=== PATIENT | female | born 1945 | race Caucasian/White ===

== ENCOUNTER → 2016-10-03 | Day surgery (SDC) | payer OTHER ==
[~2016-10-03] MED LIST: HYDROCHLOROTHIA25 MG PO; LEVOTHYROXINE50 MCG PO
--- NOTE | ~2016-10-03 | OR ---
Unit #: [id number] #: [id number] Patient: GIANCARLO ESPARZA [id number] [address] [place], [place] [address] [id number] O MR#: [id number] NAME: GIANCARLO ESPARZA ROOM: Date of Procedure: 10/03/2016 Admission Date: 10/03/2016 Surgeon: Jerod Hassan M.D. : 1945 Attending Physician: Jerod Hassan M.D. Primary Care Physician: Shirley Camp OPERATIVE REPORT PREOPERATIVE DIAGNOSIS Arthrofibrosis, left total knee. POSTOPERATIVE DIAGNOSIS Arthrofibrosis, left total knee. PROCEDURE PERFORMED Manipulation of left total knee. ANESTHESIA General. ESTIMATED BLOOD LOSS Zero. DESCRIPTION OF PROCEDURE The patient was brought to the operating room, given a general anesthetic. The left knee was manipulated with palpable audible release of adhesions. We were able to obtain flexion to about 115. She had about 85 to 90 degrees of flexion preoperatively. After this was done, the knee was found to have an excellent range of motion and general anesthetic was reversed and she was transferred to the recovery room. Dictated by... Schuyler Baker/siddharth TD: 10/04/2016 00:13 JOB #: [id number] OPERATIVE REPORT X Jerod Hassan MD X PROCEDURE OPERATIVE NOTE
[2016-10-03 08:40] LABS: HEMATOCRIT 42.3 % (35.0-45.0); HEMOGLOBIN 14.4 gm/dL (12.0-16.0); MEAN CELL VOLUME 86.6 FL (83-96); MEAN CORPUSCULAR HEMOGLOBIN 29.4 PG (28-34); RED BLOOD COUNT 4.89 X10e (3.90-5.30); RED CELL DISTRIBUTION WIDTH 13.7 % (11.0-15.5); WHITE BLOOD COUNT 5.8 X10e3 (4.0-10.5)
[2016-10-03 08:43] LABS: URINE APPEARANCE CLEAR; URINE BILIRUBIN NEG (NEG); URINE BLOOD NEG (NEG); URINE COLOR YELLOW; URINE GLUCOSE NEG (NEG); URINE KETONE NEG (NEG); URINE LEUKOCYTE ESTERASE 3+ (NEG); URINE NITRATE NEG (NEG); URINE PROTEIN NEG (NEG); URINE SPECIFIC GRAVITY 1.021 (1.003-1.035)
[2016-10-03 08:44] LABS: URBCS1 AUWI 0-2 /[HPF] (0-2); URINE BACTERIA AUWI NEG (NEGATIVE); URINE SQUAMOUS EPITHELIAL CELL OCC /[HPF]; UWBCS1 AUWI 50-100 (0-5)
[2016-10-03 09:12] LABS: BLOOD UREA NITROGEN 19 mg/dL (9-23); BUN/CREATININE RATIO 27.14; CALCIUM SERUM 9.3 mg/dL (8.4-10.2); CARBON DIOXIDE 32 mmol/L (22-31); CHLORIDE 100 mmol/L (100-111); CREATININE SERUM 0.7 mg/dL (0.6-1.4); GLOM FILT RATE Estimated ABOVE60 mL/min (>60); GLUCOSE FASTING 96 mg/dL (70-110); POTASSIUM 3.7 mmol/L (3.5-5.1); SODIUM 139 mmol/L (135-145)
== END | disposition home or self-care (01) ==
LOC: CSUR 07:59
PROVIDERS: Orthopaedic Surgery
DX: M24.662 Ankylosis, left knee (principal); Z96.652 Presence of left artificial knee joint; I10 Essential (primary) hypertension
CPT/HCPCS: 80048; 81003; 85027; J1885; J2250; J3010